=== PATIENT | female | born 1965 | race Caucasian/White ===

== ENCOUNTER 2016-05-23 00:45 | Emergency (ER) | payer SELFPAY ==
[~2016-05-23 00:45] MED LIST: KLONOPIN1 M1 PO; NORCO 5-325 TA1 EACH PO; PROZAC40 M1 PO; TYLENOL WITH C1 EACH PO; ULTRAM50 M1 PO; VISTARIL25 M1 PO
[2016-05-23] MEDS ORDERED: NORCO 5/3251 TAB PO (03:37)
[2016-05-23] MEDS ORDERED: CYCLOBENZAPRINE10 M1 PO (03:37)
[2016-10-11] MEDS ORDERED: TRAZODONE HCL50 M1 PO (10:05)
== END 2016-05-23 03:45 ==
LOC: EDMED 00:45
DX: M54.31 Sciatica, right side (principal); F41.9 Anxiety disorder, unspecified; F32.9 Major depressive disorder, single episode, unspecified; Z88.6 Allergy status to analgesic agent; Z87.442 Personal history of urinary calculi; Z79.899 Other long term (current) drug therapy; F17.210 Nicotine dependence, cigarettes, uncomplicated

== ENCOUNTER 2016-06-02 12:43 | Emergency (ER) | payer SELFPAY ==
[~2016-06-02 12:43] MED LIST changes: +CYCLOBENZAPRINE10 M1 PO; +NORCO 5/3251 TAB PO
[2016-06-02] MEDS ORDERED: CYCLOBENZAPRINE5 M1 PO (14:57)
[2016-06-02] MEDS ORDERED: NORCO 5-325 TA1 EACH PO (14:57)
[2016-10-11] MEDS ORDERED: TRAZODONE HCL50 M1 PO (10:05)
== END 2016-06-02 15:11 ==
LOC: EDMED 12:43
DX: M54.31 Sciatica, right side (principal); Z88.6 Allergy status to analgesic agent; Z88.8 Allergy status to other drugs, medicaments and biological substances